=== PATIENT | male | born 1955 | race Caucasian/White ===

== ENCOUNTER 2016-05-09 20:59 | Emergency (ER) | payer MEDICARE ==
[~2016-05-09] VITALS: Ht 172.7 cm; Wt 105.0 kg
[~2016-05-09 20:59] MED LIST: ASPI325T PO; ENAL20TA81 PO; FLUP10TA5 PO; GLUCTAB OR; LORA-474 PO; LOVA10TA PO; TRAZ150T2 PO
[2016-05-09 21:03] VITALS: PULSE 0
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
== END 2016-05-09 23:34 | disposition expired ==
LOC: NEPC 20:59
CPT/HCPCS: 99284